=== PATIENT | female | born 1990 | race Caucasian/White ===

== ENCOUNTER 2021-02-13 10:47 | Outpatient (CLI) | payer BC, SELFPAY ==
[2021-02-20 09:53] LABS: Amphetamine Positive; Barbiturates Negative; pH 7.6
[2021-02-20 09:54] LABS: Marijuana Metabolite Positive
[2021-02-20 09:57] LABS: Cocaine Metabolite Negative
[2021-02-20 09:58] LABS: Benzodiazepines Negative
== END 2021-02-13 10:48 | disposition home or self-care (01) ==
LOC: ANHBWCLAB 10:50
PROVIDERS: PCP Family Medicine; Visit Provider Family Medicine
DX: F90.9 Attention-deficit hyperactivity disorder, unspecified type (principal); Z79.899 Other long term (current) drug therapy
CPT/HCPCS: 80299

== ENCOUNTER 2021-02-21 10:02 | Outpatient (RCR) | payer BC, SELFPAY ==
--- NOTE | 2021-02-28 21:27 | PTOPEVAL ---
Thank you for referring Rachna Villalta to [facility].? The patient is scheduled to be seen for therapy? ____x/week for ___ weeks. Please review, sign, date and return this plan of care ANILA. I agree with and certify that the following plan of care is medically necessary. Referring Physician Date Admitting Provider: Attending Provider: Jose Miguel Bunn MD Referring Provider: *PT Outpatient Evaluation Start: 02/21/21 10:09 Freq: Status: Active Protocol: Document 02/21/21 10:10 [facility] (Rec: 02/21/21 15:20 [facility] [id number]) Therapy Assessment Status Assessment Status Assessment Status Evaluation Evaluation Information Problem Diagnosis R shoulder pain Onset 02/11/21 Additional Evaluation Detail quick dash = 93% functionally declined Subjective Information patient reports she injured Query Text:As Reported By Patient/ her on 02/11/21. she reports Family for a month prior it was increasingly sore. she reports then on 02/11/21 she was unable to move or lift the R arm. she reports she was also unable to grasp objects with her hand, and unable to take a deep breath. she reports she has had an xray of the R shoulder, but no MRI. she reports since her urgent care visit she has been having numbness and burning. patient reports her R shoulder will pop, grind, and pull. she reports she has been off from work since 02/11/21. she reports no specific injury that day. she reports she has increased pain in the R shoulder with coughing, taking a deep breath, reaching to her side or behind her, and turning her body in certain directions it will pull intensely. she reports she has been unable to sleep. Prior Level of Function Comments Additional Prior Level of Function patient reports she has been Comments having back pain and tension for years. however, she reports she was able to work through this. she reports her
== END 2021-03-06 08:58 | disposition home or self-care (01) ==
LOC: CHSPT 10:02
PROVIDERS: Visit Provider Family Medicine
DX: M25.511 Pain in right shoulder (principal)
CPT/HCPCS: 97014; 97110; 97140; 97162; 97530; G0283

== ENCOUNTER 2021-03-01 11:50 | Outpatient (CLI) | payer BC, SELFPAY ==
--- NOTE | ~2021-03-01 | MR_ITS ---
EXAMINATION: MR cervical spine wo con DATE: 03/01/2021 13:01 INDICATION: Neck pain. TECHNIQUE: Magnetic resonance imaging (MRI) of the cervical spine was performed without intravenous c ontrast. Sequences included sagittal T2-weighted FSE, sagittal T2-weighted FS FSE, sagittal T1-weight ed FSE, axial MERGE, and axial T2-weighted FSE. COMPARISON: None FINDINGS: Bone alignment is normal. Vertebral body heights and intervertebral disc heights are normal . The spinal cord signal intensity is normal. The following disc levels are specifically discussed: C2-C3: The disc does not extend beyond the endplate margin. There is no uncovertebral joint osteoarth ritis. There is no facet joint osteoarthritis. There is no neural foraminal stenosis. There is no glendy tral canal stenosis. C3-C4: The disc does not extend beyond the endplate margin. There is no uncovertebral joint osteoarth ritis. There is mild right facet joint osteoarthritis. There is no neural foraminal stenosis. There i s no central canal stenosis. C4-C5: The disc does not extend beyond the endplate margin. There is no uncovertebral joint osteoarth ritis. There is mild right facet joint osteoarthritis. There is no neural foraminal stenosis. There i s no central canal stenosis. C5-C6: The disc does not extend beyond the endplate margin. There is no uncovertebral joint osteoarth ritis. There is no facet joint osteoarthritis. There is no neural foraminal stenosis. There is no glendy tral canal stenosis. C6-C7: The disc does not extend beyond the endplate margin. There is no uncovertebral joint osteoarth ritis. There is mild bilateral facet joint osteoarthritis. There is no neural foraminal stenosis. The re is no central canal stenosis. C7-T1: The disc does not extend beyond the endplate margin. There is no uncovertebral joint osteoarth ritis. There is mild bilateral facet joint osteoarthritis. There is no neural foraminal stenosis. The re is no central canal stenosis. IMPRESSION: 1. Multilevel mild facet joint osteoarthritis. Reviewed, dictated and finalized at location A.
== END 2021-03-01 11:51 | disposition home or self-care (01) ==
PROVIDERS: PCP Family Medicine; Visit Provider Family Medicine
DX: M47.813 Spondylosis without myelopathy or radiculopathy, cervicothoracic region (principal); M54.2 Cervicalgia; R20.0 Anesthesia of skin; R29.898 Other symptoms and signs involving the musculoskeletal system; R53.1 Weakness; M48.03 Spinal stenosis, cervicothoracic region
CPT/HCPCS: 72141

== ENCOUNTER 2021-03-05 08:23 | Outpatient (CLI) | payer BC, SELFPAY ==
--- NOTE | ~2021-03-05 | MR_ITS ---
EXAMINATION: MR shoulder RT wo con DATE: 03/05/2021 09:26 INDICATION: Right shoulder pain TECHNIQUE: Magnetic resonance imaging (MRI) of the right shoulder was performed without intravenous c ontrast. Sequences included axial PD-weighted FS FSE, coronal oblique PD-weighted FS FSE, coronal obl ique T2-weighted FS FSE, sagittal PD-weighted FS FSE, and sagittal T1-weighted SE. COMPARISON: None. FINDINGS: Coracoacromial arch: The acromion undersurface is curved in morphology (type II). The coracoacromial ligament is normal. A cromioclavicular joint is normal. Rotator cuff: The supraspinatus, infraspinatus and teres minor tendons are normal. The subscapularis tendon is norm al. Normal rotator cuff muscle bulk and signal. Biceps tendon, glenoid labrum and glenohumeral cartilage: Long head of the biceps tendon is normal. Glenoid labrum is normal. Glenohumeral cartilage is normal. Fluid: Physiologic amount of fluid in the glenohumeral joint and biceps tendon sheath. No loose osteochondra l bodies. Small amount of fluid in the subacromial/subdeltoid bursa consistent with mild bursitis. Bones: Normal marrow signal with no edema, fracture or abnormal marrow replacing process. IMPRESSION: 1. Normal right shoulder MRI. Reviewed, dictated and finalized at location A.
== END 2021-03-05 08:24 | disposition home or self-care (01) ==
PROVIDERS: PCP Family Medicine; Visit Provider Family Medicine
DX: M54.2 Cervicalgia (principal); R20.0 Anesthesia of skin; R29.898 Other symptoms and signs involving the musculoskeletal system; R53.1 Weakness; M25.511 Pain in right shoulder
CPT/HCPCS: 73221

== ENCOUNTER 2025-01-05 19:21 | Emergency (ER) | payer BC, SELFPAY ==
--- OUTSIDE RECORDS SUMMARY | 2025-01-05 19:23 | XMS_ITS | Patient Health Record ---
Author Organization [facility] Address [address] [place] [address] Care Team Providers Care Rough Planer Tender Name Role Phone Bravo Cosby Unavailable [phone] Reason For Referral No Information Medications Medication SIG (Take, Route, Frequency, Duration) Notes Start Date End Date Status Amoxicillin 875 MG Oral A ctive FLUoxetine HCl 20 MG Oral Active Apri 0.15-30 MG-MCG Oral Active HYDROcodone-Acetaminophen 5-325 MG Oral Active Ibuprofen 800 MG Oral Act keyona Clindamycin HCl 300 MG Oral Active Plan Of Treatment No Information Insurance Providers Payer Name Payer Address Payer Phone Subscriber Number Group Number Insured Name Patient Relationship to Insured Coverage Start Date Coverage End Date [employer]cbs-[place] do not use [address] [place] [phone] [id number] [place] Spouse - patient is the spouse of the insured
--- OUTSIDE RECORDS SUMMARY | 2025-01-05 19:23 | XMS_ITS | Referral Summary ---
Author Organization [facility] Address [address] [place] [address] Care Team Providers Care Asphalt [employer] Gra[employer] Roofer Name Role Phone Jose Miguel Bunn MD Primary Care Provider [phone] Allergies Active Allergy Reactions Criticality Noted Date Comments Diphenhydramine Other (See comments) Reaction: hyper, Escitalopram Other (See comments) Reaction: migraine, Methylprednisolone Nausea only Reaction: nausea, Medications No known medications Active Problems Problem Noted Date Diagnosed Date Irregular bleeding 02/17/2024 Assessment & Plan (02/17/2024 9:39 AM CDT): Discussed possible causes and interventions. Await well woman exam and cultures. Consider round of doxycycline or pelvic ultrasound. She will continue to track cycles. Numbness and tingling of left upper extremity Cervical spondylosis with radiculopathy 03/17/20 21 Adjustment disorder with anxiety 05/30/2018 Asthma 11/07/2013 Overview (09/26/2016): Asthma Human papilloma virus (HPV) infection 01/19/2013 Overview (09/26/2016): High risk HPV infection Immunizations Immunization Administration Dates Next Due Influenza, Split 03/08/2011 Pneumococcal Polysaccharide PPV23 03/08/2011 Rho (D) Immune Globulin 03/03/2016 Tdap 03/03/2016,03/08/2011 Social History Tobacco Use Types Packs/Day Years Used Date Smoking Tobacco: Every Day Tobacco Cessation:Ready to Q uit: Not Asked; Counseling Given: Not Answered Comments:Smoking History Packs/day: 0.5 Packs Alcohol Use Standard Drinks/Week Comments Yes 0 (1 standard drink = 0.6 oz pur e alcohol) Humiliation, Afraid, Rape, and Kick questionnair e Answer Date Recorded Within the last year, have y ou been afraid of your partner or ex-partner? No 02/17/2024 Within the last year, have y ou been humiliated or emotionally abused in other ways by your partner or ex-partner? No Within the last year, have y ou been kicked, hit, slapped, or otherwise physically hurt by your partner or ex-partner? No 02/17/2024 Within the last year, have y ou been raped or forced to have any kind of sexual activity by your partner or ex-partner? No 02/17/2024 PHQ-2 Answer Date Recorded PHQ-2 Total Score (If total score is 3 or more points, staff should administer the PHQ-9) 0 05/14/2024 Comments No Sex and Gender Information Value Date Recorded Sex Assigned at Not on file Legal Sex Female 9:44 AM IMAGING CENTER MANAGER Gender Identity Not on file Sexual Orientation Not on file Last Filed Vital Signs Vital Sign Reading Time Taken Comments Blood Pressure 139/72 05/14/2024 10:16 AM IMAGING CENTER MANAGER Pulse 78 05/31/2021 9:11 AM IMAGING CENTER MANAGER Temperature - - Respiratory Rate - - Oxygen Saturation - - Inhaled Oxygen Concentration - - Weight 88 kg (194 lb) 05/14/2024 10:16 AM IMAGING CENTER MANAGER Height 170.2 cm (5' 7) 02/17/2024 9:16 AM CDT Body Mass Index 30.38 02/17/2024 9:16 AM CDT Plan of Treatment Not on file Procedures Procedure Name Priority Date/Time Associated Diagnosis Comments PAP AND HPV, REFLEX TO HPV GENOTYPES Routine 05/14/2024 10:49 AM IMAGING CENTER MANAGER Well woman exam SERUM HEPATITIS C AB Routine 08/26/2015 6:55 AM IMAGING CENTER MANAGER from Last 3 Months or Most Recently Relevant to Health Maintenance Results * Pap and HPV, reflex to HPV Genotypes (05/14/2024 10:49 AM IMAGING CENTER MANAGER) Pathologist [facility] CLINICAL INFORMATION: [facility] Comment:None given LMP [facility] Comment:A Previous Pap [facility] Comment:NONE GIVEN Prev. Bx [facility] Comment:NONE GIVEN SOURCE: [facility] Comment:Cervix, Endocervix Pap, specimen adequacy [facility] Comment: Satisfactory for evaluation. Endocervical/transformation zone component present. Age and/or menstrual status not provided HPV interp [facility] Comment: Cytology Results: Negative for intraepithelial lesion or malignancy. COMMENTS [facility] Comment: This Pap test has been evaluated with computer assisted technology. [employer] [facility] Comment: LMT, CT(ASCP) CT screening location: [place] [address] [address] [place] [id number] Comment [facility] Comment: EXPLANATORY NOTE: The Pap is a screening test for cervical cancer. It is not a diagnostic test and is subject to false negative and false positive results. It is most reliable when a satisfactory sample, regularly obtained, is submitted with relevant clinical findings and history, and when the Pap result is evaluated along with historic and current clinical information. Human papillomavirus DNA, High Risk E6/E7 Not Detected NOT DETECTED [facility] Comment: Not Detected High Risk HPV types (16,18,31,33,35,39,45,51,52, 56,58,59,66,68) were not detected. Other HPV types which cause anogenital lesions may be present. The significance of the other types of HPV in malignant processes has not been established. Methodology: Real Time PCR Thin prep-Endocervica l 05/14/2024 10:49 AM IMAGING CENTER MANAGER 05/15/2024 7:15 AM IMAGING CENTER MANAGER us Ana Lin PROCESSING INSPECTOR LAB CYTOLOGY ORDERABLES Fin al Result [facility] [address] [address] [place] [address] [place] [address] [place] [address] * Serum Hepatitis C ab (08/26/2015 6:55 AM IMAGING CENTER MANAGER) HCV ab NON-REACTI VE NON-REACTI VE HISTORICAL RESULTS Hepatitis signal to cutoff ratio 0.02 <1.00 HISTORICAL RESULTS Serum 08/26/2015 6:55 AM IMAGING CENTER MANAGER Narrative HISTORICAL RESULTS - 08/29/2015 8:00 AM IMAGING CENTER MANAGER Test performed at [employer] [facility] [address] [facility] [address] Director: KAREEM DORANTES DO,MPH us Historical Provider LAB BLOOD ORDERABLES Anat baum Result HISTORICAL RESULTS from Last 3 Months or Most Recently Relevant to Health Maintenance Insurance [employer] OOS [employer] OOS Care Teams Asphalt Tar And Gravel Roofer Relationship Specialty Start Date End Date Jose Miguel Bunn MD PCP - General Family Practice 03/13/21
--- OUTSIDE RECORDS SUMMARY | 2025-01-05 19:23 | XMS_ITS | Clinical Summary ---
Author Organization [facility] Address [address] [place] [address] Care Team Providers Care Marketing Effectiveness Manager Name Role Phone Jose Miguel Bunn MD Primary Care Provider [phone] Allergies Active Allergy Reactions Criticality Noted Date [...] Rho (D) Immune Globulin 03/03/2016 Tdap 03/03/2016,03/08/2011 Surgical History Surgery Date Site/Laterality Comments OTHER SURGICAL HISTORY 2010 Ganglion cyst removed-rt wrist ADENOIDECTOMY Adenoidectomy OTHER SURGICAL HISTORY 2012 er rib pain OTHER SURGICAL HISTORY Left wrist surgery, ganglion cyst EAR SURGERY ear surgery OTHER SURGICAL HISTORY 2015 : 8 hr labor Medical History Medical History Date Comments Hx Other Medical Sports induced asthma Hx Other Medical ; Outc ome: 40W2D week 8lb(s) 2 oz Male Hx Other Medical Perforated left ear drum Anxiety Asthma HPV (human papilloma virus) anogenital infection Family History Medical History Relation Name Comments Coronary artery disease Father Mckayla nary artery disease; Other Father Alive and well; /Double bypass; Coronary artery disease Maternal Grandfather Coronary artery disease; Migraines Mother Migraines; nidia ng Coronary artery disease Paternal Grandfather Coronary artery disease; Relation Name Status Comments Father Alive Maternal Grandfather Alive Mother Alive Paternal Grandfather Alive Social History Tobacco Use Types Packs/Day Years [...] on file Legal Sex Female 9:44 AM ANESTHESIA ATTENDING Gender Identity Not on file Sexual Orientation Not on file Obstetrics History Para Term AB IAB SAB Ectopic Multiple Livin g Live Births 1 1 1 1 Date Outcome GA Total Labor Labor/2nd/3rd Weight Sex Type Anes PTL Vaishali A1 A5 Name Clin Para Vaginal Living Last Filed Vital Signs Vital Sign Reading Time Taken Comments Blood Pressure 139/72 05/14/2024 10:16 AM ANESTHESIA ATTENDING Pulse 78 05/31/2021 9:11 AM ANESTHESIA ATTENDING Temperature - - Respiratory Rate - - Oxygen Saturation - - Inhaled Oxygen Concentration - - Weight 88 kg (194 lb) 05/14/2024 10:16 AM ANESTHESIA ATTENDING Height 170.2 cm (5' 7) 02/17/2024 9:16 AM CDT Body Mass Index 30.38 02/17/2024 9:16 AM CDT Plan of Treatment Health Maintenance Due Date Last Done Comments Varicella Vaccines (1 of 2 - 13+ 2-dose series) 2001 Hepatitis B Screening 2006 Pneumococcal vaccine <65 (2 of 2 - PCV) 03/08/2012 03/08/2011 Covid-19 Vaccine ( - 2023-2 5 season) 2024 12/17/2020, 11/25/2020 Influenza Vaccine (Season Ended) 2025 03/08/2011 Cervical Cancer Screening 05/14/2025 05/14/2024 Depression Screening 05/14/2025 05/14/2024, 02/17/2024 Regular Well Visit/Exam 18-64 05/14/2025 05/14/2024 DTaP/Tdap/Td Vaccine (3 - Td or Tdap) 03/03/2026 03/03/2016, 03/08/2011 Hepatitis C Screening Completed 08/26/2015 HPV Vaccines Aged Out No longer eligi ble based on patient's age to complete this topic Procedures Procedure Name Priority Date/Time Associated Diagnosis Comments PAP AND HPV, REFLEX TO HPV GENOTYPES Routine 05/14/2024 10:49 AM ANESTHESIA ATTENDING Well woman exam SERUM HEPATITIS C AB Routine 08/26/2015 6:55 AM ANESTHESIA ATTENDING from Last 3 Months or Most Recently Relevant to Health Maintenance Results * Pap and HPV, reflex to HPV Genotypes (05/14/2024 10:49 AM ANESTHESIA ATTENDING) CLINICAL INFORMATION: [facility] Comment:None given LMP [facility] Comment:A Previous Pap [facility] Comment:NONE GIVEN Prev. Bx [facility] Comment:NONE GIVEN SOURCE: [facility] Comment:Cervix, Endocervix Pap, specimen adequacy [facility] Comment: Satisfactory for evaluation. Endocervical/transformation zone component present. Age and/or menstrual status not provided HPV interp [facility] Comment: Cytology Results: Negative for intraepithelial lesion or malignancy. COMMENTS [facility] Comment: This Pap test has been evaluated with computer assisted technology. [employer] [facility] Comment: LMT, CT(ASCP) CT screening location: [place] [address] [address] [place] [id number] [facility] Comment: EXPLANATORY NOTE: The Pap is [...] High Risk E6/E7 Not Detected NOT DETECTED [facility] Comment: Not Detected High Risk HPV types (16,18,31,33,35,39,45,51,52, 56,58,59,66,68) were not detected. Other HPV types which cause anogenital lesions may be present. The significance of the other types of HPV in malignant processes has not been established. Methodology: Real Time PCR Thin prep-Endocervica l 05/14/2024 10:49 AM ANESTHESIA ATTENDING 05/15/2024 7:15 AM ANESTHESIA ATTENDING Ana Lin GYNECOLOGY TEACHER LAB CYTOLOGY ORDERABLES Fin al Result [facility] [address] [address] [place] [address] [address] * Serum Hepatitis C ab (08/26/2015 6:55 AM ANESTHESIA ATTENDING) HCV ab NON-REACTI VE NON-REACTI VE HISTORICAL RESULTS Hepatitis signal to cutoff ratio 0.02 <1.00 HISTORICAL RESULTS Serum 08/26/2015 6:55 AM ANESTHESIA ATTENDING Narrative HISTORICAL RESULTS - 08/29/2015 8:00 AM ANESTHESIA ATTENDING [facility] [employer] [facility] [address] [place] [address] Director: KAREEM DORANTES DO,MPH us Historical Provider LAB BLOOD ORDERABLES Anat baum Result HISTORICAL RESULTS from Last 3 Months or Most Recently Relevant to Health Maintenance Insurance [employer] OOS [email or web address] OOS Care Teams Marketing Effectiveness Manager Relationship Specialty Start Date End Date Jose Miguel Bunn MD PCP - General Family Practice 03/13/21
--- OUTSIDE RECORDS SUMMARY | 2025-01-05 19:23 | XMS_ITS | Clinical Summary ---
Author Organization [facility] Address [address] [place] [address] Phone Care Team Providers Care Boxing Instructor Name Role Phone January Jane MD Primary Care Provider [phone] Active Problems Problem Noted Date Diagnosed Date Adjustment disorder with anxiety 05/30/2018 Social History Tobacco Use Types Packs/Day Years Used Date Smoking Tobacco: Never Assessed Comments Unknown Sex and Gender Information Value Date Recorded Sex Assigned at Not on file Legal Sex Female 1:41 PM CDT Gender Identity Not on file Sexual Orientation Not on file Plan of Treatment Health Maintenance Due Date Last Done Comments Hepatitis C Virus (HCV) Screening 1988 TdaP Immunization 1988 Hepatitis B Immunization (1 of 3 - 19+ 3-dose series) 10/12/2007 Pap Smear 2009 Cervical Cancer Screening (CCS) 2018 HPV/Cotest 2018 Influenza Immunization (#1) 2024 SARS-COV-2 Immunization ( season) 2024 12/17/2020, 11/25/2020 Respiratory Syncytial Virus (RSV) Immunization (Adult) (1 - 1-dose 75+ series) 10/12/2063 Meningococcal Immunization (ACWY) Aged Out No longer eligible b ased on patient's age to complete this topic Pneumococcal Immunization Combined Aged Out No longer eligible b ased on patient's age to complete this topic Rotavirus Immunization Aged Out No lo nger eligible based on patient's age to complete this topic Insurance [facility] Care Teams Boxing Instructor Relationship Specialty Start Date End Date January Jane MD [address] [place] [address] PCP - General Internal Medicine 04/24/18
[2025-01-05 19:29] VITALS: BP 132/87; PULSE 61; RESP 18; TEMP 37.2; O2SAT 100
--- NOTE | 2025-01-05 19:42 | ED.SKABFB ---
HPI - Skin/Abscess/Foreign Bdy General Chief complaint: Skin/Abscess/Foreign Body Stated complaint: Bee Sting/Right Arm Time Seen by Provider: 01/05/25 19:25 Source: patient and RN notes reviewed Mode of arrival: ambulatory Limitations: no limitations History of Present Illness HPI narrative: 34-year-old female presents [facility] complaining of the sting to her right wrist/hand yesterday. Patient says she was stung by a bee yesterday since then has noticed increasing redness, swelling, itchiness and noticed red streaking up her right forearm. Patient denies any pain, fevers, body aches, chills, nausea, vomiting, swelling to her face throat, neck, difficulty breathing, wheezing, difficulty clearing secretions, or any other symptoms. Patient is not trending [id number] elbow symptoms. Patient immediately removed the stinger. Related Data Home Medications ?Medication ?Instructions ?Recorded ?Confirmed ?Last Taken ?Type cholecalciferol (vitamin D3) 10 10 mcg PO DAILY 02/15/21 10/17/21 Unknown History mcg (400 unit) capsule multivitamin 1 tablet PO DAILY 02/15/21 10/17/21 Unknown History Allergies Allergy/AdvReac Type Severity Reaction Status Date / Time No Known Allergies Allergy Verified 07/05/22 09:46 Review of Systems Review of Systems: CONSTITUTIONAL: Denies fever, chills, or sweats. EYES: Denies visual changes, redness, or discharge. ENT: Denies rhinorrhea, congestion, sore throat, difficulty clearing secretions, or otalgia. CARDIOVASCULAR: Denies chest pain, palpitations, or edema. RESPIRATORY: Denies cough, wheezing, difficulty breathing, or dyspnea. GASTROINTESTINAL: Denies abdominal pain, nausea, vomiting, or diarrhea. GENITOURINARY: Denies dysuria or hematuria. SKIN: Positive for rash and itching. MUSCULOSKELETAL: Denies back pain, joint pain, or myalgia. NEUROLOGIC: Denies headache, numbness, or weakness. PSYCHIATRIC: Denies anxiety or depression. All other systems reviewed are negative, except as documented in HPI. [facility]LY [facility] Past Medical History Medical History Anxiety Surgical History Surgical History H/O adenoidectomy History of surgical removal of ganglion cyst R wrist in 2008 Family History Family History Grandparent Cerebrovascular accident Social History Social History Smoking packs per day: 0.5 Smoking cigarettes per day: 10.0 Years smoked: 6 Smoking pack-years: 3.00 Smoking status: Current every day smoker Tobacco type: cigarettes Second hand tobacco smoke exposure: Yes Alcohol intake: never Substance use: never Substance use type: does not use Lack of Transportation: No Lack of Food: Never True Current Housing: I Have Housing Concerned About Future Housing: No Difficulty Paying Gas/Electric Bills: No Difficulty Paying for Meds: No Education: Trade/Vocational Certificate Difficulty w/ Childcare or Family Care: No Living arrangements: with family Occupation/Education: occupation Additional 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 There is no relevant family history pertinent to the patient complaint. Exam Narrative: GENERAL: This is a well-nourished, well-developed adult, in no apparent distress. They are non ill-appearing, nontoxic appearing. HEAD: normocephalic, atraumatic. EYES: Sclera clear/white. Conjunctiva normal. Vision is grossly intact. Extraocular movements intact EARS: External ears normal,Hearing grossly intact. NOSE: External nose normal THROAT: Mucous membranes moist, NECK: Neck supple, non-tender without lymphadenopathy, masses or thyromegaly. CARDIOVASCULAR: Regular rate and rhythm RESPIRATORY: Respiratory rate normal, respiratory effort nonlabored, no respiratory distress. No accessory muscle use or retractions. Patient is speaking in full sentences. GASTROINTESTINAL: Abdomen soft, non-tender, nondistended. Bowel sounds are active. No hepato-splenomegaly, or palpable masses. No guarding. SKIN: Right hand/wrist: Area of erythematous macular rash to patient's lateral posterior wrist/hand, swelling extending the patient is right hand. There is macular erythematous rash streaking up the patient's right forearm. Rash is pruritic, nontender, no area of fluctuance, no induration, no exudate. Skin is blanchable. NEURO: awake, alert, and oriented to person, place and time. There were no obvious focal neurologic abnormalities. EXTREMITIES: No joint tenderness, effusion, or edema noted. Course Course Emergency Course: Portions of this record may have been created with voice recognition software Level of Care: Express Care Visit Vital Signs Vital signs: Vital Signs Temperature 98.9 F 01/05/25 19:29 Pulse Rate 61 01/05/25 19:29 Respiratory Rate 18 01/05/25 19:29 Blood Pressure 132/87 01/05/25 19:29 Pulse Oximetry 100 01/05/25 19:29 Oxygen Delivery Room Air 01/05/25 19:29 Temperature 98.9 F 01/05/25 19:29 Pulse Rate 61 01/05/25 19:29 Respiratory Rate 18 01/05/25 19:29 Blood Pressure 132/87 01/05/25 19:29 Pulse Oximetry 100 01/05/25 19:29 Oxygen Delivery Room Air 01/05/25 19:29 Reviewed MDM - Skin/Abscess/Foreign Bdy MDM Narrative Medical decision making narrative: Likely local allergic reaction to bee sting. No evidence of anaphylaxis. Rash is nontender, not hot to touch, signs of infection. There is streaking up the right forearm like the related to the reaction. Will prescribe patient prednisone, Pepcid, triamcinolone cream. Patient takes daily Zyrtec. Also advised patient to take Benadryl as needed. Discussed physical exam findings. Advised supportive measures and signs/symptoms to go to the ER. Pt is appropriate for outpt treatment and f/u. Differential Diagnosis Differential diagnosis: Likely other (Allergic reaction, bee sting, contact dermatitis, cellulitis, anaphylaxis) Critical Care Time Critical Care Time Critical Care Time: No Discharge Plan Discharge Clinical Impression: Bee sting allergy Patient Disposition: Home Condition: Stable Instructions: Insect Bite or Sting (ED) Additional Instructions: Take steroid as directed Continue take your Zyrtec daily. Take the Pepcid as directed. May also take Benadryl as needed to help with itchiness symptoms. Benadryl may make you drowsy do not drive or operate machinery while taking. Wash the area with gentle soap and water only. Use triamcinolone cream to help with itchiness symptoms. This directed. You can use benadryl cream, calamine lotion or other over the counter creams as needed to reduce itching Avoid scratching when possible to prevent worsening of the condition and disruption of the skin that could lead to bacterial infection To relieve itching, place a cool washcloth or some ice over the area that itches, rather than scratching Follow up with primary care provider or seek ER if rash worsens or you have chest pain, trouble breathing, become hoarse, or start wheezing, develop belly cramps, vomiting or feel dizzy. Patient Language: Bengali Prescriptions: New triamcinolone acetonide 0.1 % cream 1 applic topical BID 5 Days Qty: 15 0RF Rx Instructions: Apply to the affected area prednisone 20 mg tablet 40 mg PO DAILY 5 Days Qty: 10 0RF famotidine [Pepcid] 40 mg tablet 40 mg PO DAILY 5 Days Qty: 5 0RF No Action omega-3 fatty acids [Fish Oil Concentrate] 1,000 mg capsule 1,000 mg PO DAILY Qty: 90 1RF progesterone micronized [Prometrium] 100 mg capsule 100 mg PO QPM Qty: 45 1RF Rx Instructions: take 1 in the evening with food on days 15 through 28 of your cycle cholecalciferol (vitamin D3) 10 mcg (400 unit) capsule 10 mcg PO DAILY multivitamin Tablet 1 tablet PO DAILY dextroamphetamine-amphetamine [Adderall XR] 30 mg capsule,extended release 24hr 30 mg PO DAILY Qty: 30 0RF Follow-up/Referrals: PHYSICIAN,ELECTRONIC TECH [Primary Care Provider] - Time of Disposition: 19:38
== END 2025-01-05 19:47 | disposition home or self-care (01) ==
DX: T63.441A Toxic effect of venom of bees, accidental (unintentional), initial encounter (principal); F17.210 Nicotine dependence, cigarettes, uncomplicated
CPT/HCPCS: 99213; G0463